=== PATIENT | female | born 1990 | race Caucasian/White ===

== ENCOUNTER → 2020-09-25 | Outpatient (CLI) | payer OTHER ==
[~2020-09-25] MED LIST: TYLENOL325 MG PO; ZOFRAN4 MG PO
== END ==
LOC: KOH-I 09-22 09:30
DX: J32.3 Chronic sphenoidal sinusitis (principal)
CPT/HCPCS: 70486

== ENCOUNTER → 2021-09-06 | Outpatient (CLI) | payer OTHER | LOC: KOH-I 09-04 11:00 | DX: R10.13 Epigastric pain (principal); R11.0 Nausea; K76.9 Liver disease, unspecified | CPT/HCPCS: 76705 ==